=== PATIENT | female | born 1970 | race American Indian/Alaskan Native ===

== ENCOUNTER 2016-11-06 15:24 | Inpatient (IN) | payer OTHER ==
[2016-11-06 15:25] VITALS: BMI 17.5
[2016-11-06] MEDS ORDERED: Albuterol-Ipratrop 3 mg / 0.5 (3 ml) UD ONE (15:51)
[2016-11-06] MEDS ORDERED: Sodium Chloride 0.9% 1,000 ML IV STA (16:00)
[2016-11-06] MEDS ORDERED: Albuterol-Ipratrop 3 mg / 0.5 (3 ml) UD IH STA ×2 (16:00→16:01)
[2016-11-06] MEDS ORDERED: Albuterol-Ipratrop 3 mg / 0.5 (3 ml) UD INH STA (16:00)
[2016-11-06 16:32] LABS: BASO % 0.4 % (0.0-2.0); EOS % 0.3 % (0.0-4.0); HEMOGLOBIN 12.5 g/dL (12.0-16.0); LYMPH # 0.6 K/uL (1.0-4.3); LYMPH % 5.8 % (20.0-40.0); MEAN CELL VOLUME 88.8 fl (81.0-99.0); MEAN CORPUSCULAR HEMOGLOBIN 29.1 pg (27.0-31.0); MEAN CORPUSCULAR HGB CONC 32.8 g/dL (33.0-37.0); MEAN PLATELET VOLUME 9.3 fl (7.2-11.7); MONO # 0.4 K/uL (0.0-0.8); MONO % 3.3 % (0.0-10.0); NEUT % 90.2 % (50.0-75.0); PLATELET COUNT 337 K/uL (130-400); RBC 4.31 Mil/uL (3.80-5.20); WHITE BLOOD COUNT 11.1 K/uL (4.8-10.8)
--- NOTE | 2016-11-06 16:32 | ED PDOC ---
HPI: General Adult Time Seen by Provider: 11/06/16 15:33 Chief Complaint (Nursing): Dizziness/Lightheaded Chief Complaint (Provider): Cough, shortness of breath History Per: Patient History/Exam Limitations: no limitations Onset/Duration Of Symptoms: Days (1) Have you had recent travel within the past 21 days to any of the following countries: [place], [place], [place] or [place]?: No Current Symptoms Are (Timing): Still Present Severity: Moderate Additional History Per: Patient Additional Complaint(s): The pt is a 46yo female, brought in by EMS for evaluation of sweats, cough with associated post-tussive vomiting, congestion, runny nose, chest pain, shortness of breath, abdominal pain and diffuse bodyaches since last night. Pt reports her symptoms started with the onset of cough after she was done cleaning her home with the use of bleach. She denies any leg pain, control use, long distance travel. Pt reports using OTC medication with no relief. She offers no additional medical complaints. Past Medical History Reviewed: Historical Data, Nursing Documentation, Vital Signs Vital Signs: Last Vital Signs Temp 100.5 F H 11/06/16 15:28 Pulse 95 H 11/06/16 15:28 Resp 16 11/06/16 16:18 BP 136/83 11/06/16 15:28 Pulse Ox 100 11/06/16 16:41 - Medical History PMH: Asthma, Gall Bladder Disease (CBD STONE, JAUNDICE) Denies: Chronic Kidney Disease - Surgical History Surgical History: Cholecystectomy, - Family History Family History: States: Unknown Family Hx - Living Arrangements Living Arrangements: With Family - Social History Current smoker - smoking cessation education provided: Yes Alcohol: None - Immunization History Hx Tetanus Toxoid Vaccination: Yes Hx Influenza Vaccination: Yes Hx Pneumococcal Vaccination: Yes - Home Medications Home Medications: Ambulatory Orders Medication Instructions Recorded Pantoprazole [Protonix] 40 mg PO BID #0 ect 11/01/15 Albuterol HFA [Ventolin HFA 90 2 puff IH Q4H #1 puff 03/04/16 mcg/actuation (8 g)] Azithromycin [Zithromax] 250 mg PO DAILY #6 tab 03/04/16 predniSONE [predniSONE Tab] 10 mg PO TID #15 tab 03/04/16 Ibuprofen [Motrin] 400 mg PO Q6 #30 tab 06/20/16 - Allergies Allergies/Adverse Reactions: Allergies Allergy/AdvReac Type Severity Reaction Status Date / Time No Known Allergies Allergy Verified 11/06/16 15:28 Review of Systems ROS Statement: Except As Marked, All Systems Reviewed And Found Negative Constitutional: Positive for: Sweats, Weakness. Negative for: Other (recent travel, brith control use) Cardiovascular: Positive for: Chest Pain Respiratory: Positive for: Cough, Shortness of Breath, Sputum Gastrointestinal: Positive for: Vomiting (post tussive), Abdominal Pain Musculoskeletal: Negative for: Leg Pain Neurological: Positive for: Weakness Physical Exam - Reviewed Nursing Documentation Reviewed: Yes Vital Signs Reviewed: Yes - Physical Exam Appears: Positive for: Uncomfortable Head Exam: Positive for: ATRAUMATIC, NORMAL INSPECTION, NORMOCEPHALIC Skin: Positive for: Normal Color, Warm, DRY Eye Exam: Positive for: EOMI, Normal appearance, PERRL ENT: Positive for: Pharyngeal Erythema. Negative for: Tonsillar Exudate, Tonsillar Swelling Neck: Positive for: Normal, Supple Cardiovascular/Chest: Positive for: Tachycardia (mild) Respiratory: Positive for: Decreased Breath Sounds, Wheezing (wheezing bilaterally) Gastrointestinal/Abdominal: Positive for: Normal Exam, Soft. Negative for: Tenderness Back: Positive for: Normal Inspection. Negative for: L CVA Tenderness, R CVA Tenderness Extremity: Positive for: Normal ROM. Negative for: Tenderness, Pedal Edema, Deformity, Swelling Neurologic/Psych: Positive for: Alert, Oriented. Negative for: Motor/Sensory Deficits - Laboratory Results Result Diagrams: 11/06/16 16:00 11/06/16 16:30 Interpretation Of Abn Labs: 11.1 wbc, po2 52 - ECG ECG: Positive for: Interpreted By Me, Viewed By Me ECG Rhythm: Positive for: Sinus Tachycardia, Nonspecific Changes O2 Sat by Pulse Oximetry: 100 (RA) Pulse Ox Interpretation: Normal - Radiology X-Ray: Read By Radiologist X-Ray Interpretation: No Acute Disease - CT Scan/US ct Other Rad Studies (CT/US): Read By Radiologist Other Rad Interpretation: lingual infiltrate - Progress ED Course And Treament: 1919: Pt. meets sepsis criteria. Will need admit. Pt. now admits to dyspnea for a "while" but getting worse. Pt. also smokes 1 pack a day. 1924: Spoke with Dr. Bowden. will admit tele inpt. Pt. feels better. Continue management and Dr. Bowden to give further meds when pt. reaches floor. - Core Measure Core Measure Indicators: Pneumonia - Critical Care Total Time (In Min): 30 Documented Critical Care: Time excludes all time spent performint seperately billable procedures Medical Decision Making Medical Decision Making: Time: 154 Impression: Cough, cold, congestion, generalized weakness x 1 day Plan: -- Duoneb -- IV fluids -- Toradol -- Solumedrol -- CXR -- ABG -- Bloodwork -- Rapid Flu -- Rapid Strep Reassess Scribe Attestation: Documented by Milagro Carlton acting as a scribe for Luis Eduardo Black MD. Provider Attestation: All medical record entries made by the Scribe were at my direction and personally dictated by me. I have reviewed the chart and agree that the record accurately reflects my personal performance of the history, physical exam, medical decision making, and the department course for this patient. I have also personally directed, reviewed, and agree with the discharge instructions and disposition. Disposition - Clinical Impression Clinical Impression: Sepsis, Hypoxia, Pneumonia - Patient ED Disposition Is Patient to be Admitted: Yes Counseled Patient/Family Regarding: Studies Performed, Diagnosis - Disposition Disposition Time: 19:27 Condition: FAIR - Pt Status Changed To: Hospital Disposition Of: Inpatient - Admit Certification Admit to Inpatient:: After my assessment, the patient will require hospitalization for at least two midnights. This is because of the severity of symptoms shown, intensity of services needed, and/or the medical risk in this patient being treated as an outpatient. - POA Present On Arrival: None Core Measure Indicators: Pneumonia
[2016-11-06 16:49] LABS: ALB/GLOB RATIO 1.3 (1.0-2.1); ALBUMIN 4.4 g/dL (3.5-5.0); ALT/SGPT 37 U/L (9-52); AST/SGOT 26 U/L (14-36); BLOOD UREA NITROGEN 11 mg/dl (7-17); CALCIUM 9.5 mg/dL (8.4-10.2); GFR AFRICAN-AMERICAN > 60; GFR NON-AFRICAN AMERICAN > 60; LIPASE 86 U/L (23-300)
--- NOTE | 2016-11-06 16:49 | RAD ---
HISTORY: Dyspnea COMPARISON: 04/11/2016. FINDINGS: LUNGS: The lungs are well inflated and clear. PLEURA: No significant pleural effusion identified, no pneumothorax apparent. CARDIOVASCULAR: Normal. OSSEOUS STRUCTURES: No significant abnormalities. VISUALIZED UPPER ABDOMEN: Normal. OTHER FINDINGS: None. IMPRESSION: No active pulmonary disease.
[2016-11-06 16:56] LABS: B-TYPE NATRIURETIC PEPTIDE 331 pg/ml (0-450)
[2016-11-06 17:10] LABS: INR 0.9 (0.9-1.2); PROTHROMBIN TIME 10.3 Seconds (9.8-13.1)
[2016-11-06 17:18] LABS: ABG ALLEN TEST YES; ARTERIAL BLOOD GAS HCO3 24.5 mmol/L (21-28); ARTERIAL BLOOD GAS O2 SAT 93.4 % (95-98); ARTERIAL BLOOD GAS PCO2 31 mm/Hg (35-45); ARTERIAL BLOOD GAS PH 7.47 (7.35-7.45); ARTERIAL BLOOD GAS PO2 52 mm/Hg (80-100); ARTERIAL BLOOD GAS TCO2 23.6 mmol/L (22-28)
[2016-11-06] MEDS ORDERED: Iodixanol 320 MG/ML 100 ML BOTTLE IV ONE (17:50)
[2016-11-06] MEDS ORDERED: Sodium Chloride 0.9% 50 ML IV ONE (17:50)
[2016-11-06 18:25] LABS: BANDS 3 % (0-2); LYMPHOCYTE 7 % (20-50); MONOCYTE 4 % (0-10); NEUTROPHIL 86 % (42-75); TOTAL CELLS COUNTED 100
[2016-11-06 18:26] LABS: ANISOCYTOSIS SLIGHT; HYPOCHROMIC SLIGHT; PLATELET ESTIMATE NORMAL (NORMAL)
--- NOTE | 2016-11-06 18:49 | CT ---
PROCEDURE: CT Chest with contrast (Pulmonary Angiogram) HISTORY: dyspnea COMPARISON: None available. TECHNIQUE: Axial computed tomography images were obtained of the chest in the pulmonary arterial phase of enhancement. Coronal and sagittal reformatted images were created and reviewed. Maximum intensity projection (MIP) reconstructed images in the following planes: Axial projection only Intravenous contrast dose: 90 cc Visipaque 320 Mean Hounsfield unit values in the main pulmonary artery: 175.03 Radiation dose: Total exam DLP = 430.08 mGy-cm. This CT exam was performed using one or more of the following dose reduction techniques: Automated exposure control, adjustment of the mA and/or kV according to patient size, and/or use of iterative reconstruction technique. FINDINGS: PULMONARY ARTERIES: No large central pulmonary emboli identified. Limitations of the current examination: Suboptimal bolus injection precludes assessment beyond the segmental branches. AORTA: No acute findings. No thoracic aortic aneurysm. LUNGS: Subsegmental lingular infiltrate. PLEURAL SPACES: Unremarkable. No effusion or pneuomothorax. HEART: Unremarkable. No cardiomegaly. No significant pericardial effusion. LYMPH NODES: No lymphadenopathy. BONES, CHEST WALL: Unremarkable. No fracture or destructive lesion OTHER FINDINGS: Diffusely enlarged thyroid gland without focal abnormality. Elective thyroid ultrasound advised. IMPRESSION: No central pulmonary emboli identified. Qualitative assessment and measurement of Hounsfield unit values in the main pulmonary artery indicate less than optimal opacification of pulmonary arterial system. Nondiagnostic assessment beyond segmental branches. Subsegmental lingular infiltrate.
[2016-11-06] MEDS ORDERED: cefTRIAXone (Rocephin) 1 gm Inj IV ONE (19:10)
[2016-11-06] MEDS ORDERED: Magnesium Sulfate 2 gm/50 ml 2 GM/50 ML BAG IVPB ONE (19:11)
[2016-11-06] MEDS ORDERED: Azithromycin 500 MG in Sodium Chloride 0.9% 250 ML IVPB ONE (19:15)
[2016-11-06] MEDS ORDERED: cefTRIAXone (Rocephin) 1 gm Inj ONE (19:30)
[2016-11-06] MEDS ORDERED: Magnesium Sulfate 2 gm/50 ml 2 GM/50 ML BAG ONE (19:30)
[2016-11-07] MEDS ORDERED: Azithromycin 500 MG in Sodium Chloride 0.9% 250 ML IVPB STA (00:38)
[2016-11-07] MEDS: Dextrose 5%/0.45% NS 1,000 ML IV SCH ×2 (00:46→12:15)
[2016-11-07] MEDS: Albuterol-Ipratrop 3 mg / 0.5 (3 ml) UD INH PRN ×2 (02:46→09:30)
[2016-11-07] MEDS ORDERED: Pneumococcal 23-Valent Vaccine IM ONE (06:00)
[2016-11-07 07:15] LABS: HEMOGLOBIN 11.5 g/dL (12.0-16.0); MEAN CELL VOLUME 88.1 fl (81.0-99.0); RBC 3.97 Mil/uL (3.80-5.20); RED CELL DISTRIBUTION WIDTH 14.7 % (11.5-14.5); WHITE BLOOD COUNT 11.1 K/uL (4.8-10.8)
[2016-11-07 07:40] LABS: ALB/GLOB RATIO 1.2 (1.0-2.1); ALBUMIN 3.9 g/dL (3.5-5.0); ALT/SGPT 24 U/L (9-52); AST/SGOT 24 U/L (14-36); BLOOD UREA NITROGEN 12 mg/dl (7-17); CALCIUM 8.7 mg/dL (8.4-10.2); GFR AFRICAN-AMERICAN > 60; GFR NON-AFRICAN AMERICAN > 60
[2016-11-07] MEDS: Azithromycin 500 MG in Sodium Chloride 0.9% 250 ML IVPB SCH (09:00)
[2016-11-07] MEDS: methylPREDNISolone 60 MG in Sodium Chloride 0.9% 50 ML IVPB SCH ×2 (09:00→21:07)
[2016-11-07] MEDS: guaiFENesin DM 200 mg-20 mg/10 ml UD PO SCH ×3 (09:13→16:26)
[2016-11-07] MEDS: Enoxaparin 40 mg Syringe SC SCH (09:15)
[2016-11-07] MEDS: Albuterol-Ipratrop 3 mg / 0.5 (3 ml) UD INH SCH ×2 (14:00→19:10)
--- NOTE | 2016-11-07 17:21 | CARD ---
APPROVED REPORT EKG Measurement Heart [id number] <Conclusion> Sinus tachycardia Biatrial enlargement Nonspecific ST and T wave abnormality Abnormal ECG
[2016-11-08] MEDS: Albuterol-Ipratrop 3 mg / 0.5 (3 ml) UD INH SCH ×4 (01:01→19:10)
[2016-11-08] MEDS: Enoxaparin 40 mg Syringe SC SCH (08:53)
[2016-11-08] MEDS: guaiFENesin DM 200 mg-20 mg/10 ml UD PO SCH (08:54)
[2016-11-08] MEDS: methylPREDNISolone 60 MG in Sodium Chloride 0.9% 50 ML IVPB SCH ×2 (08:54→21:43)
[2016-11-08] MEDS ORDERED: cefTRIAXone (Rocephin) 1 gm Inj ONE (09:00)
[2016-11-08] MEDS ORDERED: guaiFENesin 200 mg/10 ml Syrup UD ONE (09:00)
[2016-11-08] MEDS ORDERED: Enoxaparin 40 mg Syringe ONE (09:00)
[2016-11-08] MEDS ORDERED: MethylPREDNISolone 40 mg Vial ONE (09:00)
[2016-11-08] MEDS: Azithromycin 500 MG in Sodium Chloride 0.9% 250 ML IVPB SCH (10:51)
[2016-11-09] MEDS: Albuterol-Ipratrop 3 mg / 0.5 (3 ml) UD INH SCH ×4 (00:59→19:26)
[2016-11-09] MEDS: guaiFENesin DM 200 mg-20 mg/10 ml UD PO SCH ×3 (09:00→16:47)
[2016-11-09] MEDS: Enoxaparin 40 mg Syringe SC SCH (09:01)
[2016-11-09] MEDS: methylPREDNISolone 60 MG in Sodium Chloride 0.9% 50 ML IVPB SCH (09:01)
[2016-11-09] MEDS: Azithromycin 500 MG in Sodium Chloride 0.9% 250 ML IVPB SCH (09:12)
[2016-11-09] MEDS: methylPREDNISolone 40 MG in Sodium Chloride 0.9% 50 ML IV SCH ×2 (09:20→21:02)
[2016-11-10] MEDS: Albuterol-Ipratrop 3 mg / 0.5 (3 ml) UD INH SCH ×4 (01:01→19:09)
[2016-11-10 06:44] LABS: BASO % 0.1 % (0.0-2.0); HEMOGLOBIN 11.6 g/dL (12.0-16.0); LYMPH # 1.4 K/uL (1.0-4.3); LYMPH % 14.5 % (20.0-40.0); MEAN CELL VOLUME 90.6 fl (81.0-99.0); MEAN CORPUSCULAR HEMOGLOBIN 29.3 pg (27.0-31.0); MEAN CORPUSCULAR HGB CONC 32.4 g/dL (33.0-37.0); MEAN PLATELET VOLUME 9.1 fl (7.2-11.7); MONO # 0.8 K/uL (0.0-0.8); MONO % 7.7 % (0.0-10.0); NEUT # 7.7 K/uL (1.8-7.0); NEUT % 77.7 % (50.0-75.0); RBC 3.97 Mil/uL (3.80-5.20); RED CELL DISTRIBUTION WIDTH 15.3 % (11.5-14.5); WHITE BLOOD COUNT 9.9 K/uL (4.8-10.8)
[2016-11-10 06:52] LABS: ALB/GLOB RATIO 1.3 (1.0-2.1); ALBUMIN 3.8 g/dL (3.5-5.0); ALT/SGPT 35 U/L (9-52); AST/SGOT 13 U/L (14-36); BLOOD UREA NITROGEN 18 mg/dl (7-17); CALCIUM 9.1 mg/dL (8.4-10.2); GFR AFRICAN-AMERICAN > 60; GFR NON-AFRICAN AMERICAN > 60
[2016-11-10] MEDS: methylPREDNISolone 40 MG in Sodium Chloride 0.9% 50 ML IV SCH ×2 (08:24→21:20)
[2016-11-10] MEDS: guaiFENesin DM 200 mg-20 mg/10 ml UD PO SCH ×3 (08:24→16:43)
[2016-11-10] MEDS: Azithromycin 500 MG in Sodium Chloride 0.9% 250 ML IVPB SCH (09:17)
[2016-11-10] MEDS: Enoxaparin 40 mg Syringe SC SCH (10:07)
--- NOTE | 2016-11-10 13:28 | CP.PCM.HP ---
History of Present Illness - History of Present Illness History of Present Illness: This is a 46 y/o female with hx of asthma was brought to the ER due to increasing SOB and cough and wheezing, Patient works as head chef. She tales [email or web address] for rescue meds. She has never been intubated. She smoked for many years and is currently trying to stop smoking. No other significant medical history. Present on Admission - Present on Admission Any Indicators Present on Admission: No History of DVT/PE: No History of Uncontrolled Diabetes: No Urinary Catheter: No Decubitus Ulcer Present: No Review of Systems - Respiratory Respiratory: Cough, Dyspnea, Wheezing Past Patient History - Infectious Disease Hx of Infectious Diseases: None - Tetanus Immunizations Tetanus Immunization: Unknown - Past Medical History & Family History Past Medical History?: Yes - Past Social History Smoking Status: Heavy Smoker > 10 Cigarettes Daily - CARDIAC Hx Cardiac Disorders: No - PULMONARY Hx Respiratory Disorders: Yes Hx Asthma: Yes - NEUROLOGICAL Hx Neurological Disorder: No - HEENT Hx HEENT Problems: Yes (WEARS GLASSES) - RENAL Hx Chronic Kidney Disease: No - ENDOCRINE/METABOLIC Hx Endocrine Disorders: No - HEMATOLOGICAL/ONCOLOGICAL Hx Blood Disorders: No - INTEGUMENTARY Hx Dermatological Problems: No - MUSCULOSKELETAL/RHEUMATOLOGICAL Hx Musculoskeletal Disorders: Yes Hx Back Pain: Yes Hx Falls: Yes (pt states "I am clumsy". Not from dizziness) - GASTROINTESTINAL Hx Gastrointestinal Disorders: Yes Hx Gall Bladder Disease: Yes (CBD STONE, JAUNDICE) - GENITOURINARY/GYNECOLOGICAL Hx Genitourinary Disorders: No - PSYCHIATRIC Hx Psychophysiologic Disorder: No Hx Substance Use: No - SURGICAL HISTORY Hx Surgeries: Yes Hx Section: Yes Hx Cholecystectomy: Yes - ANESTHESIA Hx Anesthesia: Yes Hx Anesthesia Reactions: No Hx Malignant Hyperthermia: No Meds Home Medications: Home Medication List Medication Instructions Recorded Confirmed Type Methylprednisolone [Medrol Dose 4 mg PO DAILY #21 mg 11/10/16 Rx Pack (21 tabs)] Allergies/Adverse Reactions: Allergies Allergy/AdvReac Type Severity Reaction Status Date / Time No Known Allergies Allergy Verified 11/06/16 15:28 Physical Exam - Head Exam Head Exam: NORMAL INSPECTION - Eye Exam Eye Exam: Normal appearance - ENT Exam ENT Exam: Mucous Membranes Moist - Neck Exam Neck exam: Positive for: Normal Inspection - Respiratory Exam Respiratory Exam: Decreased Breath Sounds, Rhonchi, Wheezes - GI/Abdominal Exam GI & Abdominal Exam: Normal Bowel Sounds - Neurological Exam Neurological exam: CN II-XII Intact, Oriented x3 Results - Vital Signs Recent Vital Signs: Last Vital Signs Temp 97.3 F L 11/10/16 12:41 Pulse 96 H 11/10/16 12:41 Resp 20 11/10/16 12:41 BP 129/86 11/10/16 12:41 Pulse Ox 96 11/10/16 12:41 - Labs Result Diagrams: 11/10/16 05:00 11/10/16 05:00 Labs: Laboratory Results - last 24 hr 11/10/16 11/10/16 05:00 05:00 WBC 9.9 RBC 3.97 Hgb 11.6 L Hct 36.0 MCV 90.6 D MCH 29.3 MCHC 32.4 L RDW 15.3 H Plt Count 316 MPV 9.1 Neut % (Auto) 77.7 H Lymph % (Auto) 14.5 L Stephenson % (Auto) 7.7 Eos % (Auto) 0.0 Baso % (Auto) 0.1 Neut # 7.7 H Lymph # 1.4 Stephenson # 0.8 Eos # 0.0 Baso # 0.0 Sodium 140 Potassium 4.5 Chloride 105 Carbon Dioxide 26 Anion Gap 13 BUN 18 H Creatinine 0.7 Est GFR ( Amer) > 60 Est GFR (Non-Af Amer) > 60 Random Glucose 113 H Calcium 9.1 Total Bilirubin 0.2 AST 13 L D ALT 35 Alkaline Phosphatase 54 Total Protein 6.8 Albumin 3.8 Globulin 3.0 Albumin/Globulin Ratio 1.3 Assessment & Plan (1) Asthma exacerbation Status: Acute Priority: High (2) Chronic bronchitis with acute exacerbation Status: Acute (3) Pneumonia Status: Acute - Assessment and Plan (Free Text) Plan: start v ntibiotics solumedrol Neb treatment wean off solumedrol amd other pain meds. Gino Toledo M.M.
--- NOTE | 2016-11-10 15:05 | RAD ---
HISTORY: pneumonia COMPARISON: Comparison chest radiograph CTA chest both dated CT 11/06/2016. TECHNIQUE: Chest PA and lateral FINDINGS: LUNGS: No active pulmonary disease. PLEURA: No significant pleural effusion identified. No pneumothorax apparent. CARDIOVASCULAR: Normal. OSSEOUS STRUCTURES: No significant abnormalities. VISUALIZED UPPER ABDOMEN: Normal. OTHER FINDINGS: None. IMPRESSION: No acute cardiopulmonary disease.
[2016-11-11] MEDS: Albuterol-Ipratrop 3 mg / 0.5 (3 ml) UD INH SCH ×3 (01:09→13:55)
[2016-11-11] MEDS: methylPREDNISolone 40 MG in Sodium Chloride 0.9% 50 ML IV SCH (08:44)
[2016-11-11] MEDS: guaiFENesin DM 200 mg-20 mg/10 ml UD PO SCH ×2 (08:44→12:39)
[2016-11-11] MEDS: Azithromycin 500 MG in Sodium Chloride 0.9% 250 ML IVPB SCH (08:46)
--- NOTE | 2016-11-11 14:36 | CP.PCM.PN ---
Subjective - Date & Time of Evaluation Date of Evaluation: 11/08/16 Time of Evaluation: 10:00 - Subjective Subjective: Patiet still has a lot of wheezing and cough. Noted slight elevateion of WBC Has n fever. Has no chest pain Has some SOB. Gets neb tx. Objective - Vital Signs/Intake and Output Vital Signs (last 24 hours): Temp Pulse Resp BP Pulse Ox 98.2 F 105 H 20 106/72 94 L 11/11/16 12:12 11/11/16 12:12 11/11/16 12:12 11/11/16 12:12 11/11/16 12:12 Intake and Output: 11/11/16 11/11/16 06:59 18:59 Intake Total 450 Balance 450 - Medications Medications: Current Medications Acetaminophen (Tylenol 325mg Tab) 650 mg PO Q6 PRN PRN Reason: Fever >100.4 F Acetaminophen (Tylenol 325mg Tab) 650 mg PO Q6 PRN PRN Reason: Pain, Mild (1-3) Last Admin: 11/08/16 03:04 Dose: 650 mg Albuterol/Ipratropium (Duoneb 3 Mg/0.5 Mg (3 Ml) Ud) 3 ml INH RQ6 SITA Last Admin: 11/11/16 13:55 Dose: 3 ml Guaifenesin/Dextromethorphan (Robitussin Dm) 10 ml PO TID SITA Last Admin: 11/11/16 12:39 Dose: 10 ml Azithromycin 500 mg/ Sodium (Chloride) 250 mls @ 250 mls/hr IVPB DAILY SITA Last Admin: 11/11/16 08:46 Dose: 250 mls/hr Ceftriaxone Sodium 1 gm/ (Sodium Chloride) 100 mls @ 100 mls/hr IVPB DAILY SITA Last Admin: 11/11/16 08:45 Dose: 100 mls/hr Methylprednisolone 40 mg/ (Sodium Chloride) 50 mls @ 100 mls/hr IV Q12 SITA Last Admin: 11/11/16 08:44 Dose: 100 mls/hr Ibuprofen (Motrin Tab) 600 mg PO Q6 PRN PRN Reason: Pain, moderate (4-7) Last Admin: 11/11/16 07:52 Dose: 600 mg - Labs Labs: 11/10/16 05:00 11/10/16 05:00 PT 10.3 Seconds (9.8-13.1) 11/06/16 16:30 INR 0.9 (0.9-1.2) 11/06/16 16:30 APTT 30.0 Seconds (25.6-37.1) 11/06/16 16:30 - Head Exam Head Exam: NORMAL INSPECTION - Eye Exam Eye Exam: Normal appearance - ENT Exam ENT Exam: Mucous Membranes Moist - Respiratory Exam Respiratory Exam: Decreased Breath Sounds, Wheezes - Cardiovascular Exam Cardiovascular Exam: REGULAR RHYTHM - GI/Abdominal Exam GI & Abdominal Exam: Soft Assessment and Plan (1) Asthma exacerbation Status: Acute (2) Chronic bronchitis with acute exacerbation Status: Acute (3) Pneumonia Status: Acute - Assessment and Plan (Free Text) Plan: Cont meds Maintain solumedrol at 60 bid neb tx taper off solumedrol in am cont tx.
--- NOTE | 2016-11-11 14:38 | CP.PCM.PN ---
Subjective - Date & Time of Evaluation Date of Evaluation: 11/09/16 Time of Evaluation: 10:30 - Subjective Subjective: Patient feels a little better but still with a lot of wheezing despite high doses of Metjhlypredinisone Has no chest pain but has some SOB. Has no fever. Objective - Vital Signs/Intake and Output Vital Signs (last 24 hours): Temp Pulse Resp BP Pulse Ox 98.2 F 105 H 20 106/72 94 L 11/11/16 12:12 11/11/16 12:12 11/11/16 12:12 11/11/16 12:12 11/11/16 12:12 Intake and Output: 11/11/16 11/11/16 06:59 18:59 Intake Total 450 Balance 450 - Medications Medications: Current Medications Acetaminophen (Tylenol 325mg Tab) 650 mg PO Q6 PRN PRN Reason: Fever >100.4 F Acetaminophen (Tylenol 325mg Tab) 650 mg PO Q6 PRN PRN Reason: Pain, Mild (1-3) Last Admin: 11/08/16 03:04 Dose: 650 mg Albuterol/Ipratropium (Duoneb 3 Mg/0.5 Mg (3 Ml) Ud) 3 ml INH RQ6 SITA Last Admin: 11/11/16 13:55 Dose: 3 ml Guaifenesin/Dextromethorphan (Robitussin Dm) 10 ml PO TID SITA Last Admin: 11/11/16 12:39 Dose: 10 ml Azithromycin 500 mg/ Sodium (Chloride) 250 mls @ 250 mls/hr IVPB DAILY SITA Last Admin: 11/11/16 08:46 Dose: 250 mls/hr Ceftriaxone Sodium 1 gm/ (Sodium Chloride) 100 mls @ 100 mls/hr IVPB DAILY SITA Last Admin: 11/11/16 08:45 Dose: 100 mls/hr Methylprednisolone 40 mg/ (Sodium Chloride) 50 mls @ 100 mls/hr IV Q12 SITA Last Admin: 11/11/16 08:44 Dose: 100 mls/hr Ibuprofen (Motrin Tab) 600 mg PO Q6 PRN PRN Reason: Pain, moderate (4-7) Last Admin: 11/11/16 07:52 Dose: 600 mg - Labs Labs: 11/10/16 05:00 11/10/16 05:00 PT 10.3 Seconds (9.8-13.1) 11/06/16 16:30 INR 0.9 (0.9-1.2) 11/06/16 16:30 APTT 30.0 Seconds (25.6-37.1) 11/06/16 16:30 - Head Exam Head Exam: NORMAL INSPECTION - Eye Exam Eye Exam: Normal appearance - Respiratory Exam Respiratory Exam: Clear to Ausculation Bilateral, Wheezes - GI/Abdominal Exam GI & Abdominal Exam: Normal Bowel Sounds - Neurological Exam Neurological Exam: Awake, Oriented x3 Assessment and Plan (1) Asthma exacerbation Status: Acute (2) Chronic bronchitis with acute exacerbation Status: Acute (3) Pneumonia Status: Acute - Assessment and Plan (Free Text) Plan: Con tmed cont to taper steroids Neb tx iv antibiotics.
--- NOTE | 2016-11-11 14:40 | CP.PCM.PN ---
Subjective - Date & Time of Evaluation Date of Evaluation: 11/10/16 Time of Evaluation: 10:35 - Subjective Subjective: Patient did well Has no chest pain Has lsight SOB Has no fever, On lower doses of solumedrol. Objective - Vital Signs/Intake and Output Vital Signs (last 24 hours): Temp Pulse Resp BP Pulse Ox 98.2 F 105 H 20 106/72 94 L 11/11/16 12:12 11/11/16 12:12 11/11/16 12:12 11/11/16 12:12 11/11/16 12:12 Intake and Output: 11/11/16 11/11/16 06:59 18:59 Intake Total 450 Balance 450 - Medications Medications: Current Medications Acetaminophen (Tylenol 325mg Tab) 650 mg PO Q6 PRN PRN Reason: Fever >100.4 F Acetaminophen (Tylenol 325mg Tab) 650 mg PO Q6 PRN PRN Reason: Pain, Mild (1-3) Last Admin: 11/08/16 03:04 Dose: 650 mg Albuterol/Ipratropium (Duoneb 3 Mg/0.5 Mg (3 Ml) Ud) 3 ml INH RQ6 SITA Last Admin: 11/11/16 13:55 Dose: 3 ml Guaifenesin/Dextromethorphan (Robitussin Dm) 10 ml PO TID SITA Last Admin: 11/11/16 12:39 Dose: 10 ml Azithromycin 500 mg/ Sodium (Chloride) 250 mls @ 250 mls/hr IVPB DAILY [facility] Last Admin: 11/11/16 08:46 Dose: 250 mls/hr Ceftriaxone Sodium 1 gm/ (Sodium Chloride) 100 mls @ 100 mls/hr IVPB DAILY SITA Last Admin: 11/11/16 08:45 Dose: 100 mls/hr Methylprednisolone 40 mg/ (Sodium Chloride) 50 mls @ 100 mls/hr IV Q12 SITA Last Admin: 11/11/16 08:44 Dose: 100 mls/hr Ibuprofen (Motrin Tab) 600 mg PO Q6 PRN PRN Reason: Pain, moderate (4-7) Last Admin: 11/11/16 07:52 Dose: 600 mg - Labs Labs: 11/10/16 05:00 11/10/16 05:00 PT 10.3 Seconds (9.8-13.1) 11/06/16 16:30 INR 0.9 (0.9-1.2) 11/06/16 16:30 APTT 30.0 Seconds (25.6-37.1) 11/06/16 16:30 - Head Exam Head Exam: NORMAL INSPECTION - Eye Exam Eye Exam: Normal appearance - ENT Exam ENT Exam: Mucous Membranes Moist - Respiratory Exam Respiratory Exam: Decreased Breath Sounds, Rhonchi - Cardiovascular Exam Cardiovascular Exam: REGULAR RHYTHM - GI/Abdominal Exam GI & Abdominal Exam: Normal Bowel Sounds Assessment and Plan (1) Asthma exacerbation Status: Acute (2) Chronic bronchitis with acute exacerbation Status: Acute (3) Pneumonia Status: Acute - Assessment and Plan (Free Text) Plan: Con tmeds Cont tx Cnt neb tx and steroids.
--- NOTE | 2016-11-11 14:43 | CP.PCM.DIS ---
Provider - Provider Date of Admission: 11/06/16 19:27 Attending physician: Gino Bowden MD Time Spent in preparation of Discharge (in minutes): 30 Diagnosis - Discharge Diagnosis (1) Asthma exacerbation Status: Acute Priority: High (2) Chronic bronchitis with acute exacerbation Status: Acute (3) Pneumonia Status: Acute Hospital Course - Lab Results Lab Results: Most Recent Lab Values WBC 9.9 K/uL (4.8-10.8) 11/10/16 05:00 RBC 3.97 Mil/uL (3.80-5.20) 11/10/16 05:00 Hgb 11.6 g/dL (12.0-16.0) L 11/10/16 05:00 Hct 36.0 % (34.0-47.0) 11/10/16 05:00 MCV 90.6 fl (81.0-99.0) D 11/10/16 05:00 MCH 29.3 pg (27.0-31.0) 11/10/16 05:00 MCHC 32.4 g/dL (33.0-37.0) L 11/10/16 05:00 RDW 15.3 % (11.5-14.5) H 11/10/16 05:00 Plt Count 316 K/uL (130-400) 11/10/16 05:00 MPV 9.1 fl (7.2-11.7) 11/10/16 05:00 Neut % (Auto) 77.7 % (50.0-75.0) H 11/10/16 05:00 Lymph % (Auto) 14.5 % (20.0-40.0) L 11/10/16 05:00 [place] % (Auto) 7.7 % (0.0-10.0) 11/10/16 05:00 Eos % (Auto) 0.0 % (0.0-4.0) 11/10/16 05:00 Baso % (Auto) 0.1 % (0.0-2.0) 11/10/16 05:00 Neut # 7.7 K/uL (1.8-7.0) H 11/10/16 05:00 Lymph # 1.4 K/uL (1.0-4.3) 11/10/16 05:00 [place] # 0.8 K/uL (0.0-0.8) 11/10/16 05:00 Eos # 0.0 K/uL (0.0-0.7) 11/10/16 05:00 Baso # 0.0 K/uL (0.0-0.2) 11/10/16 05:00 Neutrophils % (Manual) 86 % (42-75) H 11/06/16 16:00 Band Neutrophils % 3 % (0-2) H 11/06/16 16:00 Lymphocytes % (Manual) 7 % (20-50) L 11/06/16 16:00 Monocytes % (Manual) 4 % (0-10) 11/06/16 16:00 Platelet Estimate Normal (NORMAL) 11/06/16 16:00 Hypochromasia (manual) Slight 11/06/16 16:00 Anisocytosis (manual) Slight 11/06/16 16:00 PT 10.3 Seconds (9.8-13.1) 11/06/16 16:30 INR 0.9 (0.9-1.2) 11/06/16 16:30 APTT 30.0 Seconds (25.6-37.1) 11/06/16 16:30 pCO2 31 mm/Hg (35-45) L 11/06/16 17:05 pO2 52 mm/Hg (80-100) L 11/06/16 17:05 HCO3 24.5 mmol/L (21-28) 11/06/16 17:05 ABG pH 7.47 (7.35-7.45) H 11/06/16 17:05 ABG Total CO2 23.6 mmol/L (22-28) 11/06/16 17:05 ABG O2 Saturation 93.4 % (95-98) L 11/06/16 17:05 ABG Base Excess -0.2 mmol/L (-2.0-3.0) 11/06/16 17:05 Nolan Test Yes 11/06/16 17:05 ABG Potassium 3.2 mmol/L (3.6-5.2) L 11/06/16 17:05 A-a O2 Difference 80.0 mm/Hg 11/06/16 17:05 Sodium 136.0 mmol/L (132-148) 11/06/16 17:05 Chloride 108.0 mmol/L (98-107) H 11/06/16 17:05 Glucose 109 mg/dL (65-105) H 11/06/16 17:05 Lactate 1.4 mmol/L (0.7-2.1) 11/06/16 17:05 FiO2 24.0 % 11/06/16 17:05 Sodium 140 mmol/l (132-148) 11/10/16 05:00 Potassium 4.5 MMOL/L (3.6-5.0) 11/10/16 05:00 Chloride 105 mmol/L (98-107) 11/10/16 05:00 Carbon Dioxide 26 mmol/L (22-30) 11/10/16 05:00 Anion Gap 13 (10-20) 11/10/16 05:00 BUN 18 mg/dl (7-17) H 11/10/16 05:00 Creatinine 0.7 mg/dL (0.7-1.2) 11/10/16 05:00 Est GFR ( Amer) > 60 11/10/16 05:00 Est GFR (Non-Af Amer) > 60 11/10/16 05:00 Random Glucose 113 mg/dL (65-105) H 11/10/16 05:00 Calcium 9.1 mg/dL (8.4-10.2) 11/10/16 05:00 Total Bilirubin 0.2 mg/dl (0.2-1.3) 11/10/16 05:00 AST 13 U/L (14-36) L D 11/10/16 05:00 ALT 35 U/L (9-52) 11/10/16 05:00 Alkaline Phosphatase 54 U/L (38-126) 11/10/16 05:00 Troponin I < 0.0120 ng/mL (0.00-0.120) 11/06/16 16:30 NT-Pro-B Natriuret Pep 331 pg/ml (0-450) 11/06/16 16:30 Total Protein 6.8 G/DL (6.3-8.2) 11/10/16 05:00 Albumin 3.8 g/dL (3.5-5.0) 11/10/16 05:00 Globulin 3.0 gm/dL (2.2-3.9) 11/10/16 05:00 Albumin/Globulin Ratio 1.3 (1.0-2.1) 11/10/16 05:00 Lipase 86 U/L (23-300) 11/06/16 16:30 Arterial Blood Potassium 3.2 mmol/L (3.6-5.2) L 11/06/16 17:05 Influenza Typ A,B (EIA) Negative for flu a/b (NEGATIVE) 11/06/16 16:00 Grp A Beta Strep Ag Negative (NEGATIVE) 11/06/16 16:00 - Hospital Course Hospital Course: 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 She was started on HFA MDI pump but to no avail. Her sx worsened hence sought eval at the ER. Has no fever Sh was started on IV solumedrol then meds were tapered off. She was also noted to have a very small pneumonia Lingular and was maintained on IV antibiotics She did very well and was sent home in stable condition on po antibiocs and and tapering dose of prednisone She was advised to follow up in my office in 1 to 2 weeks and atrt smoking cessatin prom Discharge Exam - Head Exam Head Exam: NORMAL INSPECTION - Eye Exam Eye Exam: Normal appearance - Respiratory Exam Respiratory Exam: Wheezes, NORMAL BREATHING PATTERN - GI/Abdominal Exam GI & Abdominal Exam: Normal Bowel Sounds - Neurological Exam Neurological exam: CN II-XII Intact, Reflexes Normal - Psychiatric Exam Psychiatric exam: Normal Mood Discharge Plan - Discharge Medications Prescriptions: Methylprednisolone [Medrol Dose Pack (21 tabs)] 4 mg PO DAILY #21 mg - Follow Up Plan Condition: FAIR Disposition: HOME/ ROUTINE Additional Instructions: advised follow up in office will send on tapering doses of perdnisone and neb tx and long acting steroids and B agonists.
[2016-11-11 16:00] VITALS: BP 138/87; PULSE 111; RESP 18; TEMP 98.1; O2SAT 95
[2016-11-12] MEDS: Albuterol-Ipratrop 3 mg / 0.5 (3 ml) UD INH SCH (01:03)
== END 2016-11-11 16:00 | disposition home or self-care (01) | DRG 194 ==
LOC: H.ER 15:24 → H.ERHOLD 19:27 → H.TEL 21:50
PROVIDERS: ADMIT Family Medicine; ATTEND Family Medicine
PROC: 3E0F73Z Introduction of Anti-inflammatory into Respiratory Tract, Via Natural or Artificial Opening (ICD-10-PCS; principal; 2016-11-06)
PROC: 3E0234Z Introduction of Serum, Toxoid and Vaccine into Muscle, Percutaneous Approach (ICD-10-PCS; 2016-11-07)
DX: J18.9 Pneumonia, unspecified organism (principal); J45.901 Unspecified asthma with (acute) exacerbation; J42 Unspecified chronic bronchitis; F17.210 Nicotine dependence, cigarettes, uncomplicated; Z23 Encounter for immunization

== ENCOUNTER 2017-05-12 10:42 | Emergency (ER) | payer OTHER ==
[2017-05-12 10:42] VITALS: BMI 17.5
[2017-05-12 10:52] VITALS: BP 134/86; PULSE 108; RESP 22; TEMP 98.3
[2017-05-12 11:00] VITALS: O2SAT 98
[2017-05-12] MEDS ORDERED: Albuterol-Ipratrop 3 mg / 0.5 (3 ml) UD INH STA (11:24)
--- NOTE | 2017-05-12 11:35 | ED PDOC ---
HPI: CCC, URI, Sore Throat Time Seen by Provider: 05/12/17 10:55 Chief Complaint (Nursing): Cough, Cold, Congestion Chief Complaint (Provider): Cough History Per: Patient History/Exam Limitations: no limitations Additional Complaint(s): Pt. with cough, congestion, runny nose, green phlegm. 2 weeks. Tried robitusson and inhaler. Feels like her asthma and feels dyspnea/wheezes. No chest pain. Had body aches. Weakness mild all over. No headaches, dizziness. No abd pain, nausea, vomit, diarrhea. No leg pain, hormone tx. No long distance travel. Past Medical History Reviewed: Nursing Documentation, Vital Signs Vital Signs: Last Vital Signs Temp 98.3 F 05/12/17 10:51 Pulse 108 H 05/12/17 10:51 Resp 22 05/12/17 10:51 BP 134/86 05/12/17 10:51 Pulse Ox 98 05/12/17 10:58 - Medical History PMH: Asthma, Gall Bladder Disease (CBD STONE, JAUNDICE) Denies: Chronic Kidney Disease - Surgical History Surgical History: Cholecystectomy, - Family History Family History: States: Unknown Family Hx - Social History Current smoker - smoking cessation education provided: No Alcohol: None Drugs: Denies - Immunization History Hx Tetanus Toxoid Vaccination: Yes Hx Influenza Vaccination: Yes Hx Pneumococcal Vaccination: Yes - Home Medications Home Medications: Ambulatory Orders Medication Instructions Recorded Methylprednisolone [Medrol Dose 4 mg PO DAILY #21 mg 11/10/16 Pack (21 tabs)] Albuterol Sulfate [Proair Hfa] 0.09 mg IH Q6H PRN #2 inh 05/12/17 Azithromycin [Zithromax] 250 mg PO DAILY 5 Days tab 05/12/17 Benzonatate [Tessalon Perles] 100 mg PO BID PRN 5 Days sgl 05/12/17 Ibuprofen [Motrin] 600 mg PO TID 7 Days tab 05/12/17 predniSONE [predniSONE Tab] 20 mg PO BID 5 Days tab 05/12/17 - Allergies Allergies/Adverse Reactions: Allergies Allergy/AdvReac Type Severity Reaction Status Date / Time No Known Allergies Allergy Verified 11/06/16 15:28 Review of Systems ROS Statement: Except As Marked, All Systems Reviewed And Found Negative ENT: Positive for: Nose Pain, Nose Congestion Respiratory: Positive for: Cough, Shortness of Breath, Sputum Musculoskeletal: Positive for: Other (bodyaches) Neurological: Positive for: Weakness Physical Exam - Reviewed Nursing Documentation Reviewed: Yes Vital Signs Reviewed: Yes - Physical Exam Appears: Positive for: Non-toxic, No Acute Distress Head Exam: Positive for: ATRAUMATIC, NORMAL INSPECTION, NORMOCEPHALIC Skin: Positive for: Normal Color, Warm, DRY Eye Exam: Positive for: EOMI, Normal appearance, PERRL ENT: Positive for: Nasal Congestion Neck: Positive for: Normal, Painless ROM, Supple Cardiovascular/Chest: Positive for: Regular Rate, Rhythm. Negative for: Edema Respiratory: Positive for: Decreased Breath Sounds, Wheezing (mild diffuse) Gastrointestinal/Abdominal: Positive for: Normal Exam, Bowel Sounds, Soft. Negative for: Tenderness Back: Positive for: Normal Inspection. Negative for: L CVA Tenderness, R CVA Tenderness Extremity: Positive for: Normal ROM. Negative for: Tenderness, Pedal Edema Neurologic/Psych: Positive for: Alert, Oriented - ECG ECG: Positive for: Interpreted By Me, Viewed By Me ECG Rhythm: Positive for: Normal QRS, Normal ST Segment, Sinus Rhythm O2 Sat by Pulse Oximetry: 98 Pulse Ox Interpretation: Normal - Progress ED Course And Treament: 1324: Stable. AAOx3. Pain free. Tolerated PO. Fu with pcp. Disposition - Clinical Impression Clinical Impression: Bronchitis - Patient ED Disposition Is Patient to be Admitted: No Counseled Patient/Family Regarding: Diagnosis, Need For Followup, Rx Given - Disposition Referrals: [facility] [Outside] - 05/13/17 Disposition: Routine/Home Disposition Time: 13:26 Condition: STABLE Additional Instructions: Return if not better in 3 days. Prescriptions: Albuterol Sulfate [Proair Hfa] 0.09 mg IH Q6H PRN #2 inh PRN Reason: Wheezing Azithromycin [Zithromax] 250 mg PO DAILY 5 Days tab Benzonatate [Tessalon Perles] 100 mg PO BID PRN 5 Days sgl PRN Reason: Cough Ibuprofen [Motrin] 600 mg PO TID 7 Days tab predniSONE [predniSONE Tab] 20 mg PO BID 5 Days tab Instructions: Acute Bronchitis (ED) Forms: [facility] (Lithuanian), [facility] ED School/Work Excuse
[2017-05-12] MEDS ORDERED: Albuterol-Ipratrop 3 mg / 0.5 (3 ml) UD ONE ×2 (11:38→12:04)
[2017-05-12] MEDS: Albuterol-Ipratrop 3 mg / 0.5 (3 ml) UD IH STA ×2 (11:45→12:08)
--- NOTE | 2017-05-13 10:57 | CARD ---
APPROVED REPORT EKG Measurement Heart [id number] <Conclusion> Sinus tachycardia Possible Left atrial enlargement Borderline ECG
== END 2017-05-12 13:48 | disposition home or self-care (01) ==
LOC: H.ER 10:42
DX: J40 Bronchitis, not specified as acute or chronic (principal); J45.909 Unspecified asthma, uncomplicated

== ENCOUNTER 2017-08-10 17:00 | Emergency (ER) | payer OTHER ==
[2017-08-10 17:00] VITALS: BMI 17.5
[2017-08-10 17:18] VITALS: RESP 18
[2017-08-10] MEDS ORDERED: Amoxicillin-Clav 875-125 mg Tab PO STA (18:50)
--- NOTE | 2017-08-10 19:02 | ED PDOC ---
HPI: Dental Pain/Injury Time Seen by Provider: 08/10/17 17:48 Chief Complaint (Nursing): Dental Pain Chief Complaint (Provider): Dental Pain History Per: Patient History/Exam Limitations: no limitations Onset/Duration Of Symptoms: Days (x3) Current Symptoms Are (Timing): Still Present Additional Complaint(s): 47 y/o female presents to the ED for evaluation of dental pain x3 days. Patient states she had her left upper lateral incisor extracted on Thursday. States she feels pain whenever the bottom tooth makes contact with the extraction area. States shes been taking Motrin with temporary relief of pain. Reports last taking 400mg Motrin 2 hours ago. States she was not given any antibiotics for prophylaxis before or after the procedure. Denies fever, chest pain, cough/ shortness of breath, or drooling. Tetanus UTD. PMD: None Dentist: Dr. Sapp Past Medical History Reviewed: Historical Data, Nursing Documentation, Vital Signs Vital Signs: Last Vital Signs Temp 98.3 F 08/10/17 17:16 Pulse 84 08/10/17 17:16 Resp 18 08/10/17 17:16 BP 144/92 H 08/10/17 17:16 Pulse Ox 98 08/10/17 17:16 - Medical History PMH: Asthma, Gall Bladder Disease (CBD STONE, JAUNDICE) Denies: Chronic Kidney Disease - Surgical History Surgical History: Cholecystectomy, - Family History Family History: States: Unknown Family Hx - Social History Current smoker - smoking cessation education provided: Yes ("half a pack a day") Alcohol: None Drugs: Denies - Home Medications Home Medications: Ambulatory Orders Medication Instructions Recorded Methylprednisolone [Medrol Dose 4 mg PO DAILY #21 mg 11/10/16 Pack (21 tabs)] Albuterol Sulfate [Proair Hfa] 0.09 mg IH Q6H PRN #2 inh 05/12/17 Azithromycin [Zithromax] 250 mg PO DAILY 5 Days tab 05/12/17 Benzonatate [Tessalon Perles] 100 mg PO BID PRN 5 Days sgl 05/12/17 Ibuprofen [Motrin] 600 mg PO TID 7 Days tab 05/12/17 predniSONE [predniSONE Tab] 20 mg PO BID 5 Days tab 05/12/17 Acetaminophen [Acetaminophen 8 650 mg PO Q8 PRN #21 tablet.er 08/10/17 Hour] Amoxicillin/Clavulanate [Augmentin 1 tab PO BID #14 tab 08/10/17 875 MG-125 MG] - Allergies Allergies/Adverse Reactions: Allergies Allergy/AdvReac Type Severity Reaction Status Date / Time No Known Allergies Allergy Verified 11/06/16 15:28 Review of Systems ROS Statement: Except As Marked, All Systems Reviewed And Found Negative Constitutional: Negative for: Fever ENT: Positive for: Mouth Pain Cardiovascular: Negative for: Chest Pain Respiratory: Negative for: Shortness of Breath Physical Exam - Reviewed Nursing Documentation Reviewed: Yes Vital Signs Reviewed: Yes - Physical Exam Comments: GENERAL APPEARANCE: Patient is awake, alert, oriented x 3, in no acute distress. Speaking in full sentences, respirations even and nonlabored. SKIN: Warm, dry; (-) cyanosis. NECK: Supple, FROM (-) tenderness, (-) crepitus. CHEST AND RESPIRATORY: (-) accessory muscle use. Lungs: (-) rales, (-) rhonchi, (-) wheezes, (-) rub; breath sounds equal bilaterally. HEART AND CARDIOVASCULAR: (-) irregularity; (-) murmur, (-) gallop, (-) rub. ENMT: Hollow cavity at left upper gums where lateral incisor was extracted. (+) tenderness at hollow cavity. 2mm x 1mm white plaque in the center of cavity. Otherwise gums are non-tender with (-) gingival swelling. (-) sinus swelling or tenderness. (-) fluctuance. Pharynx: (-) erythema, (-) exudate. Airway patent : (-) stridor. Uvula midline. NEURO: Mental status as above. Affect: calm. Ambulatory in ED with steady gait. - ECG O2 Sat by Pulse Oximetry: 98 (RA) Pulse Ox Interpretation: Normal Medical Decision Making Medical Decision Making: Time: 18:50 Initial Impression: Oral pain s/p dental extraction, possible dental infection. Plan: --Augmentin 1 tab PO --Ultram 50mg PO (Patient reports she is not driving home) --Reevaluation 1999 On re-evaluation, patient reports improvement of symptoms. On exam, patient remains AAOx3, in no acute distress. Lungs clear to auscultation, cardiac RRR, repeat neuro exam shows no focal findings. VSS. Repeat BP: 114/82. Repeat HR: 78. Diagnostic results d/w the patient in great detail. Diagnosis of oral pain, possible dental infection s/p dental extraction d/w the patient. Based on history, exam and diagnostic results, plan will be for outpatient follow up with dentist/oral surgeon. Patient instructed to follow-up with pmd / referral provided / the clinic in 1- 2 days without fail. Advised to take medication as prescribed. Return to the emergency room at any time for any new or worsening symptoms. Patient states she fully agrees with and understands discharge instructions. States that she agrees with the plan and disposition. Verbalized and repeated discharge instructions and plan. I have given the patient opportunity to ask any additional questions. Scribe Attestation: Documented by Fernando Dupree, acting as a scribe for Mary Chen PA-C. Provider Scribe Attestation: All medical record entries made by the Scribe were at my direction and personally dictated by me. I have reviewed the chart and agree that the record accurately reflects my personal performance of the history, physical exam, medical decision making, and the department course for this patient. I have also personally directed, reviewed, and agree with the discharge instructions and disposition. Disposition - Clinical Impression Clinical Impression: Dental injury, Hx of tooth extraction - Patient ED Disposition Is Patient to be Admitted: No Counseled Patient/Family Regarding: Diagnosis, Need For Followup, Rx Given - Disposition Disposition: Routine/Home Disposition Time: 20:03 Condition: STABLE Additional Instructions: FOLLOW UP WITH DENTIST OR ORAL SURGEON WITHIN 1-2 DAYS. Prescriptions: Acetaminophen [Acetaminophen 8 Hour] 650 mg PO Q8 PRN #21 tablet.er PRN Reason: Pain, Moderate (4-7) Amoxicillin/Clavulanate [Augmentin 875 MG-125 MG] 1 tab PO BID #14 tab Instructions: Tooth Extraction (DC) Forms: [facility] (Bulgarian), [facility] ED School/Work Excuse Print Language: GHANAIAN - POA Present On Arrival: None
[2017-08-10] MEDS ORDERED: Amoxicillin-Clav 875-125 mg Tab PO ONE (19:11)
[2017-08-10 20:17] VITALS: BP 114/82; PULSE 78; TEMP 98.9
[2017-08-11 02:23] VITALS: O2SAT 98
== END 2017-08-10 20:33 | disposition home or self-care (01) ==
LOC: H.ER 17:00
DX: K08.89 Other specified disorders of teeth and supporting structures (principal)

== ENCOUNTER 2017-09-16 13:19 | Emergency (ER) | payer OTHER ==
[2017-09-16 13:19] VITALS: BMI 17.5
[2017-09-16] MEDS ORDERED: Promethazine/Cod 6.25mg-10mg/5ml Syr UD PO STA (13:55)
[2017-09-16] MEDS ORDERED: Albuterol-Ipratrop 3 mg / 0.5 (3 ml) UD INH STA (13:55)
[2017-09-16] MEDS ORDERED: Albuterol 0.083% Inhal Sol (2.5 mg/3 mL) UD INH STA (13:55)
[2017-09-16] MEDS ORDERED: Albuterol-Ipratrop 3 mg / 0.5 (3 ml) UD ONE (14:12)
--- NOTE | 2017-09-16 14:12 | ED PDOC ---
HPI: General Adult Time Seen by Provider: 09/16/17 13:30 Chief Complaint (Nursing): Flu-like Symptoms Chief Complaint (Provider): Cough, headache History Per: Patient History/Exam Limitations: no limitations Onset/Duration Of Symptoms: Days (1) Have you had recent travel within the past 21 days to any of the following countries: [place], [place], [place] or [place]?: No Current Symptoms Are (Timing): Still Present Additional History Per: Patient Additional Complaint(s): 47yo female with history of asthma and prior admissions due to asthma, presents to ED with complaints of cough, nasal congestion and shortness of breath with associated 2 episodes of post-tussive, nonbloody vomiting since last night. Patient is also complaining of a global headache. She states she has been using home remedies with no relief of symptoms; patient states she has not taken any medications today. She also reports her last asthma flare up was 1 month ago and did not require admission. She denies any recent travels or sick contacts, diarrhea, abdominal pain, chest pain, vomiting, leg pain/swelling, recent prolonged immobility, back pain, weakness, numbness, or photophobia. She offers no other medical complaints. Patient also denies any history of intubations. PMD: Dr. Sapp Past Medical History Reviewed: Historical Data, Nursing Documentation, Vital Signs Vital Signs: Last Vital Signs Temp 98.1 F 09/16/17 16:17 Pulse 89 09/16/17 16:17 Resp 18 09/16/17 16:17 BP 117/70 09/16/17 16:17 Pulse Ox 99 09/16/17 17:11 - Medical History PMH: Asthma, Gall Bladder Disease (CBD STONE, JAUNDICE) Denies: Chronic Kidney Disease - Surgical History Surgical History: Cholecystectomy, - Family History Family History: States: No Known Family Hx, Unknown Family Hx - Social History Current smoker - smoking cessation education provided: Yes (0.5 pack per day) Alcohol: None Drugs: Denies - Home Medications Home Medications: Ambulatory Orders Medication Instructions Recorded Methylprednisolone [Medrol Dose 4 mg PO DAILY #21 mg 11/10/16 Pack (21 tabs)] Albuterol Sulfate [Proair Hfa] 0.09 mg IH Q6H PRN #2 inh 05/12/17 Azithromycin [Zithromax] 250 mg PO DAILY 5 Days tab 05/12/17 Benzonatate [Tessalon Perles] 100 mg PO BID PRN 5 Days sgl 05/12/17 Ibuprofen [Motrin] 600 mg PO TID 7 Days tab 05/12/17 predniSONE [predniSONE Tab] 20 mg PO BID 5 Days tab 05/12/17 Acetaminophen [Acetaminophen 8 650 mg PO Q8 PRN #21 tablet.er 08/10/17 Hour] Amoxicillin/Clavulanate [Augmentin 1 tab PO BID #14 tab 08/10/17 875 MG-125 MG] Acetaminophen [Acetaminophen 8 650 mg PO Q8 PRN #24 tablet.er 09/16/17 Hour] Albuterol Sulfate [Ventolin Hfa] 1 puff IH Q2 #1 each 09/16/17 Promethazine/Dextromethorphan 5 ml PO Q6 PRN #150 ml 09/16/17 [Promethazine-Dm Syrup] - Allergies Allergies/Adverse Reactions: Allergies Allergy/AdvReac Type Severity Reaction Status Date / Time No Known Allergies Allergy Verified 11/06/16 15:28 Review of Systems ROS Statement: Except As Marked, All Systems Reviewed And Found Negative Constitutional: Positive for: Fever (tactile) Eyes: Negative for: Other (photophobia) ENT: Positive for: Nose Congestion Cardiovascular: Negative for: Chest Pain Respiratory: Positive for: Cough Gastrointestinal: Positive for: Vomiting (posttussive) Neurological: Positive for: Headache. Negative for: Weakness, Numbness Physical Exam - Reviewed Nursing Documentation Reviewed: Yes Vital Signs Reviewed: Yes - Physical Exam Comments: GENERAL APPEARANCE: Patient is awake, alert, oriented x 3, in no acute distress. SKIN: Warm, dry; (-) cyanosis. EYES: (-) conjunctival pallor. ENMT: Mucous membranes moist. Airway patent: (-) stridor. Pharynx: (-) swelling, (-) erythema, (-) exudate. TMs (-) erythema (-) bulging (-) vesicles bilaterally. (-) Nasal flaring, (+) nares patent NECK: Supple, FROM (-) tenderness, (-) stiffness, (-) lymphadenopathy. CHEST AND RESPIRATORY: (+) scattered inspiratory wheezing (+) rhonchi, (-) rales , (-) wheezes, (-) pleural rub, (-) accessory muscle use; breath sounds equal bilaterally, speaking in full sentences. HEART AND CARDIOVASCULAR: (-) irregularity; (-) murmur, (-) gallop. ABDOMEN AND GI: Soft; (-) tenderness (-) guarding (-) distention. EXTREMITIES: (-) deformity; (-) edema. NEURO AND PSYCH: Mental status as above. Cranial nerves grossly intact; strength symmetric. Gait steady. - ECG O2 Sat by Pulse Oximetry: 99 (RA) Pulse Ox Interpretation: Normal Medical Decision Making Medical Decision Making: Impression: Cough, headache, asthma exacerbation Plan: -- CXR -- Tylenol 650mg PO -- Albuterol 2.5mg INH -- Duoneb 3ml INH -- Decadron 10mg IM -- Motrin 600 mg PO -- Phenergan 5ml PO Time: 1510 XR reviewed, radiology report follows HISTORY: cough COMPARISON: Chest radiograph dated 11/10/2016. TECHNIQUE: Chest PA and lateral FINDINGS: LUNGS: No active pulmonary disease. PLEURA: No significant pleural effusion identified. No pneumothorax apparent. CARDIOVASCULAR: Normal. OSSEOUS STRUCTURES: No significant abnormalities. VISUALIZED UPPER ABDOMEN: Normal. OTHER FINDINGS: None. IMPRESSION: No active disease. Time: 1511 Upon reevaluation, patient states she is feeling much better. On exam, there is resolution of wheezing and rhonchi improved; respirations are even and unlabored and patient is speaking in full sentences. On exam, patient remains AAOx3, in no acute distress; neck is supple, cardiac RRR, abdomen is soft and non-tender, neuro exam shows no focal findings. Smoking cessation encouraged. Repeat HR:98 Repeat O2: 99% on RA Repeat BP: 108/71 Diagnostic results d/w the patient in great detail. Dx of cough, post-tussive emesis, headache, asthma exacerbation/possible bronchitis. Patient advised to follow up with primary care physician in 1-2 days without fail. Advised to take medication as prescribed. Return to the emergency room at any time for any new or worsening symptoms. Patient states she fully agrees with and understands discharge instructions. States that she agrees with the plan and disposition. Verbalized and repeated discharge instructions and plan. I have given the patient opportunity to ask any additional questions. Scribe Attestation: Documented by Milagro Carlton acting as a scribe for DAWN Henao. Provider Attestation: All medical record entries made by the Scribe were at my direction and personally dictated by me. I have reviewed the chart and agree that the record accurately reflects my personal performance of the history, physical exam, medical decision making, and the department course for this patient. I have also personally directed, reviewed, and agree with the discharge instructions and disposition. Disposition - Clinical Impression Clinical Impression: Cough in adult, Bronchitis, Post-tussive emesis, Headache, Asthma exacerbation - Patient ED Disposition Is Patient to be Admitted: No Counseled Patient/Family Regarding: Studies Performed, Diagnosis, Need For Followup, Rx Given, Smoking Cessation - Disposition Disposition: Routine/Home Disposition Time: 15:25 Condition: STABLE Additional Instructions: FOLLOW UP WITH PMD IN 1-2 DAYS WITHOUT FAIL. RETURN TO ED WITH ANY NEW OR WORSENING SYMPTOMS. Prescriptions: Acetaminophen [Acetaminophen 8 Hour] 650 mg PO Q8 PRN #24 tablet.er PRN Reason: headache, fever Albuterol Sulfate [Ventolin Hfa] 1 puff IH Q2 #1 each Promethazine/Dextromethorphan [Promethazine-Dm Syrup] 5 ml PO Q6 PRN #150 ml PRN Reason: Cough Instructions: Cough in Adults, Acute Bronchitis, Tension Headache (DC), Asthma in Adults Forms: [facility] (Italian), [facility] ED School/Work Excuse Print Language: TELUGU - POA Present On Arrival: None
[2017-09-16] MEDS ORDERED: Promethazine/Cod 6.25mg-10mg/5ml Syr UD ONE (14:30)
[2017-09-16] MEDS ORDERED: Albuterol 0.083% Inhal Sol (2.5 mg/3 mL) UD ONE (14:31)
--- NOTE | 2017-09-16 15:13 | RAD ---
HISTORY: cough COMPARISON: Chest radiograph dated 11/10/2016. TECHNIQUE: Chest PA and lateral FINDINGS: LUNGS: No active pulmonary disease. PLEURA: No significant pleural effusion identified. No pneumothorax apparent. CARDIOVASCULAR: Normal. OSSEOUS STRUCTURES: No significant abnormalities. VISUALIZED UPPER ABDOMEN: Normal. OTHER FINDINGS: None. IMPRESSION: No active disease.
[2017-09-16 16:17] VITALS: BP 117/70; PULSE 89; RESP 18; TEMP 98.1
[2017-09-16 17:01] VITALS: O2SAT 99
== END 2017-09-16 16:17 | disposition home or self-care (01) ==
LOC: H.ER 13:19
DX: J40 Bronchitis, not specified as acute or chronic (principal); R11.10 Vomiting, unspecified; J45.901 Unspecified asthma with (acute) exacerbation; R51 Headache; F17.210 Nicotine dependence, cigarettes, uncomplicated
CPT/HCPCS: 71046; 94640; 96372; 99283; J1100

== ENCOUNTER 2018-09-22 10:24 | Emergency (ER) | payer OTHER ==
[2018-09-22 10:34] VITALS: BMI 30.7
[2018-09-22] MEDS ORDERED: Albuterol-Ipratrop 3 mg / 0.5 (3 ml) UD IH STA (11:00)
--- NOTE | 2018-09-22 11:02 | ED PDOC ---
HPI: Influenza Time Seen by Provider: 09/22/18 10:44 Chief Complaint: Cough, Cold, Congestion History Per: Patient Onset/Duration Of Symptoms: Days (2) Symptoms include: fever, bodyaches, sore throat, cough Additional complaint(s):: Fever cough productive yellow sputum, sore throat and bodyaches x 2 days. Denies SOB Past Medical History Vital Signs: Last Vital Signs Temp 98.2 F 09/22/18 10:33 Pulse 106 H 09/22/18 10:33 Resp 20 09/22/18 10:33 BP 115/80 09/22/18 10:33 Pulse Ox 98 09/22/18 10:33 Primary Care Provider: Procedure,Nonphys - Medical History PMH: Asthma, Gall Bladder Disease (CBD STONE, JAUNDICE) Denies: Chronic Kidney Disease - Surgical History Surgical History: Cholecystectomy, - Family History Family History: States: Unknown Family Hx - Immunization History Hx Tetanus Toxoid Vaccination: Yes Hx Influenza Vaccination: Yes Hx Pneumococcal Vaccination: Yes - Home Medications Home Medications: Ambulatory Orders Medication Instructions Recorded Methylprednisolone [Medrol Dose 4 mg PO DAILY #21 mg 11/10/16 Pack (21 tabs)] Albuterol Sulfate [Proair Hfa] 0.09 mg IH Q6H PRN #2 inh 05/12/17 Azithromycin [Zithromax] 250 mg PO DAILY 5 Days tab 05/12/17 Benzonatate [Tessalon Perles] 100 mg PO BID PRN 5 Days sgl 05/12/17 Ibuprofen [Motrin] 600 mg PO TID 7 Days tab 05/12/17 predniSONE [predniSONE Tab] 20 mg PO BID 5 Days tab 05/12/17 Acetaminophen [Acetaminophen 8 650 mg PO Q8 PRN #21 tablet.er 08/10/17 Hour] Amoxicillin/Clavulanate [Augmentin 1 tab PO BID #14 tab 08/10/17 875 MG-125 MG] Acetaminophen [Acetaminophen 8 650 mg PO Q8 PRN #24 tablet.er 09/16/17 Hour] Albuterol Sulfate [Ventolin Hfa] 1 puff IH Q2 #1 each 09/16/17 Promethazine/Dextromethorphan 5 ml PO Q6 PRN #150 ml 09/16/17 [Promethazine-Dm Syrup] Albuterol HFA [Ventolin HFA 90 2 puff IH Q4H #1 puff 09/22/18 mcg/actuation (8 g)] Azithromycin [Zithromax] 250 mg PO DAILY #6 tab 09/22/18 - Allergies Allergies/Adverse Reactions: Allergies Allergy/AdvReac Type Severity Reaction Status Date / Time No Known Allergies Allergy Verified 11/06/16 15:28 Review of Systems ROS Statement: Except As Marked, All Systems Reviewed And Found Negative Constitutional: Positive for: Fever, Malaise Respiratory: Positive for: Cough Physical Exam - Reviewed Nursing Documentation Reviewed: Yes Vital Signs Reviewed: Yes - Physical Exam Appears: Positive for: Non-toxic, No Acute Distress Head Exam: Positive for: ATRAUMATIC, NORMAL INSPECTION, NORMOCEPHALIC Skin: Positive for: Normal Color, Warm, DRY Eye Exam: Positive for: EOMI, Normal appearance, PERRL ENT: Positive for: Normal ENT Inspection Neck: Positive for: Normal, Painless ROM Cardiovascular/Chest: Positive for: Regular Rate, Rhythm Respiratory: Positive for: Rhonchi, Wheezing (R>L). Negative for: Respiratory Distress Gastrointestinal/Abdominal: Positive for: Normal Exam, Soft Back: Positive for: Normal Inspection Extremity: Positive for: Normal ROM Neurological/Psych: Positive for: Awake, Alert, Normal Tone - ECG O2 Sat by Pulse Oximetry: 98 Disposition - Clinical Impression Clinical Impression: Bronchitis - Patient ED Disposition Is Patient to be Admitted: No Counseled Patient/Family Regarding: Studies Performed, Diagnosis, Need For Followup, Rx Given - Disposition Referrals: [facility] [Outside] Disposition: Routine/Home Disposition Time: 12:14 Condition: FAIR Prescriptions: Albuterol HFA [Ventolin HFA 90 mcg/actuation (8 g)] 2 puff IH Q4H #1 puff Azithromycin [Zithromax] 250 mg PO DAILY #6 tab Instructions: Acute Bronchitis Forms: [employer] ([place])
--- NOTE | 2018-09-22 11:42 | RAD ---
Date of service: 09/22/2018 HISTORY: cough COMPARISON: 09/16/2017 TECHNIQUE: Chest PA and lateral views FINDINGS: LUNGS: No active pulmonary disease. PLEURA: No significant pleural effusion identified. No pneumothorax apparent. CARDIOVASCULAR: No aortic atherosclerotic calcification present. Normal cardiac size. No pulmonary vascular congestion. OSSEOUS STRUCTURES: No significant abnormalities. VISUALIZED UPPER ABDOMEN: Normal. OTHER FINDINGS: None. IMPRESSION: No active disease. No interval pathology noted.
[2018-09-22 12:59] VITALS: BP 110/68; PULSE 84; RESP 18; TEMP 97.2; O2SAT 100
== END 2018-09-22 12:50 | disposition home or self-care (01) ==
LOC: H.ER 10:24
DX: J40 Bronchitis, not specified as acute or chronic (principal)